=== PATIENT | female | born 1965 | race Two or more races ===

== ENCOUNTER → 2021-09-02 13:54 | Outpatient (AMBR) | payer MEDICAID, SELFPAY ==
--- NOTE | 2021-08-01 14:33 | PT.ODAYNRPT ---
PT Outpatient Daily Note Date of Service: 08/01/2021 OP Daily Note Visit Reasons: UNS FX LOWER LT RADIUS Outpatient Physical Therapy Treatment Date: 08/01/21 Subjective: pt came in states her R wrist is hurting more than her L wrist. her R wrist still has the plates inside. Objective: see flow sheet. Assessment: pt is flexing her hand while on e-stim. after estim she continues with other exercises. the green level which is the medium seems to be fine for pt she has no difficulty in flexing but slight difficulty with extending on the medium level. she maintained her endurance with resistance on scifi. heat post ther ex. Plan: continue POC per PT. Length of Time (minutes) of Treatment: 30 Minutes Office Procedures PT Procedures PT Date of Service: 08/01/21 OP Electrical Stimul Unattended: Yes Therapeutic Exercise 15 minutes: Yes
--- NOTE | 2021-08-08 16:11 | PT.ODAYNRPT ---
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 Objective: see flow sheet. Assessment: pt used the newer bike in which she felt it was harder even though there was no resistance. explained to pt it had no resistance. pt tolerated increase in the estim. while on modality she squeezes the ball to keep the contraction. as she goes through the exercises she keeps conversation indicating no pain nor difficulty with exercises. she mentioned she wants to take out the screw on the R hand to have better mobility. Plan: continue POC per PT. Length of Time (minutes) of Treatment: 30 Minutes Office Procedures PT Procedures PT Date of Service: 08/08/21 Therapeutic Exercise 30 minutes: Yes PT Procedures PT Date of Service: 08/01/21 OP Electrical Stimul Unattended: Yes Therapeutic Exercise 15 minutes: Yes
--- NOTE | 2021-08-13 14:05 | PT.ODAYNRPT ---
PT Outpatient Daily Note Date of Service: 08/13/21 OP Daily Note Visit Reasons: UNS FX LOWER LT RADIUS Outpatient Physical Therapy Treatment Date: 08/13/21 Subjective: Pt's left wrist and hand is better. Pt was able to make salsa this past weekend. Pt started light cooking with less difficulty Objective: Please see flow chart for list of ther ex performed Assessment: tolerate exercises with minimal pain; correct wrist to get more wrist extension versus wrist extension + supination during wrist extension exercise. Plan: Continue with PT Length of Time (minutes) of Treatment: 30 Minutes Office Procedures PT Procedures PT Date of Service: 08/08/21 Therapeutic Exercise 30 minutes: Yes PT Procedures PT Date of Service: 08/01/21 OP Electrical Stimul Unattended: Yes Therapeutic Exercise 15 minutes: Yes PT Procedures PT Date of Service: 08/13/21 OP Electrical Stimul Unattended: Yes Therapeutic Exercise 15 minutes: Yes
--- NOTE | 2021-08-15 15:33 | PT.ODAYNRPT ---
PT Outpatient Daily Note Date of Service: 08/15/2021 OP Daily Note Visit Reasons: UNS FX LOWER LT RADIUS Outpatient Physical Therapy Treatment Date: 08/15/21 Subjective: pt states her arm was sore from last visit. the intensity was different which caused her to have muscle fatigue. Objective: see flow sheet. Assessment: made sure her Estim was more comfortable per her tolerance. pt did demonstrate the exercise that caused more fatigue from last visit which was the wrist extension using very light DB. withheld off that exercise for today. continued with the rest of the exercise. although she was sore she completed the usual exercises. hot pack post ther ex per pt request. Plan: continue POC per PT. Length of Time (minutes) of Treatment: 30 Minutes Office Procedures PT Treatments PT Date of Service: 08/08/21 Therapeutic Exercise 30 minutes: Yes PT Treatments PT Date of Service: 08/15/21 OP Electrical Stimul Unattended: Yes Therapeutic Exercise 15 minutes: Yes PT Treatments PT Date of Service: 08/01/21 OP Electrical Stimul Unattended: Yes Therapeutic Exercise 15 minutes: Yes PT Treatments PT Date of Service: 08/13/21 OP Electrical Stimul Unattended: Yes Therapeutic Exercise 15 minutes: Yes
--- NOTE | 2021-08-19 14:15 | PT.ODAYNRPT ---
PT Outpatient Daily Note Date of Service: 08/19/2021 OP Daily Note Visit Reasons: UNS FX LOWER LT RADIUS Outpatient Physical Therapy Treatment Date: 08/19/21 Subjective: pt doing good upon visit. Objective: see flow sheet. Assessment: pt tolerated higher level on the estim with no issues. once she was on the scifit after the estim she had mentioned tingling on her forearm for a few seconds. she continued with the bike and completed the time frame. pt did well with her ther ex and has no difficulty with the motions. she does prefer heat post ther ex. Plan: continue POC per PT. Length of Time (minutes) of Treatment: 30 Minutes Office Procedures PT Treatments PT Date of Service: 08/08/21 Therapeutic Exercise 30 minutes: Yes PT Treatments PT Date of Service: 08/15/21 OP Electrical Stimul Unattended: Yes Therapeutic Exercise 15 minutes: Yes PT Treatments PT Date of Service: 08/19/21 OP Electrical Stimul Unattended: Yes Therapeutic Exercise 15 minutes: Yes PT Treatments PT Date of Service: 08/01/21 OP Electrical Stimul Unattended: Yes Therapeutic Exercise 15 minutes: Yes PT Treatments PT Date of Service: 08/13/21 OP Electrical Stimul Unattended: Yes Therapeutic Exercise 15 minutes: Yes
--- NOTE | 2021-08-23 15:08 | PT.ODAYNRPT ---
PT Outpatient Daily Note Date of Service: 08/23/2021 OP Daily Note Visit Reasons: UNS FX LOWER LT RADIUS Outpatient Physical Therapy Treatment Date: 08/23/21 Subjective: pt says her forearm felt weird today as she stated she was cutting veggies and doing chores. Objective: see flow sheet. Assessment: pt used a new tool for exercise for pronation/supination and radial dev. it did have light weight on it in which she extends the elbow to assist the motion. noted weakness with isolated wrist motions. pt completed all other exercises but she was having more discomfort. heat post ther ex. Plan: continue POC per PT. Length of Time (minutes) of Treatment: 30 Minutes Office Procedures PT Treatments PT Date of Service: 08/08/21 Therapeutic Exercise 30 minutes: Yes PT Treatments PT Date of Service: 08/15/21 OP Electrical Stimul Unattended: Yes Therapeutic Exercise 15 minutes: Yes PT Treatments PT Date of Service: 08/19/21 OP Electrical Stimul Unattended: Yes Therapeutic Exercise 15 minutes: Yes PT Treatments PT Date of Service: 08/23/21 Therapeutic Exercise 30 minutes: Yes PT Treatments PT Date of Service: 08/01/21 OP Electrical Stimul Unattended: Yes Therapeutic Exercise 15 minutes: Yes PT Treatments PT Date of Service: 08/13/21 OP Electrical Stimul Unattended: Yes Therapeutic Exercise 15 minutes: Yes
--- NOTE | 2021-08-27 15:07 | PT.ODS1RPT ---
PT OP Progress/Discharge Note Date of Service: 08/27/21 Patient Information Visit Reasons: UNS FX LOWER LT RADIUS Medical Diagnosis: S52.502A Treatment Dx #1: Left Wrist Mobility Deficits Treatment Dx #2: Left Wrist Weakness Service Continue Service or Discharge: Continue Service Certification Date Certification Dates: 08/27/21 to 11/26/21 Status Subjective: Pt's wrist is feeling much better. Pt still has pain (3/10) with certain activities. Pt started cooking, cleaning, chores, and performing light ADLs at home with less limitation. Pt still has limitation with lifting, gripping activities, wood work, and performing recreational activities. Objective: Left Wrist AROM Flexion: 40 deg Extension: 22 deg Pronation: 85 deg Supination: 68 deg Ulnar Deviation: 12 deg Radial Deviation: 22 deg Left Wrist MMTs: grossly 3+/5 Code Enforcement Inspector Strength L: 29 lbs R: 26 lbs Assessment: Pt continues to slowly improve with wrist ROM and strength allowing her to perform light ADLs, chores, cook, and self care with less limitation. Pt still has limitation with recreational activities, gripping, and performing lifting due to weakness and wrist AROM limitaiton. Pt has not met set goals and will continue to benefit from physical therapy, thank you for your referrals. Plan: Continue with PT/POC This patient will be transfer to [facility], DPT as of 09/02/21 Office Procedures PT Treatments PT Date of Service: 08/08/21 Therapeutic Exercise 30 minutes: Yes PT Treatments PT Date of Service: 08/15/21 OP Electrical Stimul Unattended: Yes Therapeutic Exercise 15 minutes: Yes PT Treatments PT Date of Service: 08/19/21 OP Electrical Stimul Unattended: Yes Therapeutic Exercise 15 minutes: Yes PT Treatments PT Date of Service: 08/23/21 Therapeutic Exercise 30 minutes: Yes PT Treatments PT Date of Service: 08/01/21 OP Electrical Stimul Unattended: Yes Therapeutic Exercise 15 minutes: Yes PT Treatments PT Date of Service: 08/13/21 OP Electrical Stimul Unattended: Yes Therapeutic Exercise 15 minutes: Yes PT Treatments PT Date of Service: 08/27/21 Therapeutic Exercise 30 minutes: Yes
--- NOTE | 2021-08-29 16:43 | PT.ODAYNRPT ---
PT Outpatient Daily Note Date of Service: 08/29/2021 OP Daily Note Visit Reasons: UNS FX LOWER LT RADIUS Outpatient Physical Therapy Treatment Date: 08/29/21 Subjective: pt states she still not able to bend the wrist. she continues to have pain. Objective: see flow sheet. Assessment: pt started with sci fit followed by PROM. noted pt does have a limited mobility of the wrist. she does have discomfort during PROM. after a few mins continued onto the exercises. she completed all ther ex and refused heat post ther ex. Plan: continue POC per PT. Length of Time (minutes) of Treatment: 30 Minutes Office Procedures PT Treatments PT Date of Service: 08/08/21 Therapeutic Exercise 30 minutes: Yes PT Treatments PT Date of Service: 08/15/21 OP Electrical Stimul Unattended: Yes Therapeutic Exercise 15 minutes: Yes PT Treatments PT Date of Service: 08/19/21 OP Electrical Stimul Unattended: Yes Therapeutic Exercise 15 minutes: Yes PT Treatments PT Date of Service: 08/23/21 Therapeutic Exercise 30 minutes: Yes PT Treatments PT Date of Service: 08/29/21 Therapeutic Exercise 15 minutes: Yes Manual Turbine Room Attendant 15 minutes: Yes PT Treatments PT Date of Service: 08/01/21 OP Electrical Stimul Unattended: Yes Therapeutic Exercise 15 minutes: Yes PT Treatments PT Date of Service: 08/13/21 OP Electrical Stimul Unattended: Yes Therapeutic Exercise 15 minutes: Yes PT Treatments PT Date of Service: 08/27/21 Therapeutic Exercise 30 minutes: Yes
--- NOTE | 2021-09-02 15:31 | PT.ODAYNRPT ---
PT Outpatient Daily Note Date of Service: 09/02/2021 OP Daily Note Visit Reasons: UNS FX LOWER LT RADIUS Outpatient Physical Therapy Treatment Date: 09/02/21 Subjective: pt states her wrist still hurts as she uses her hands daily. Objective: see flow sheet. Assessment: PROM and noted the same ROM which is still limited. not much movement during PROM. she does demonstrate good strength during manual resistance. she does not complain during PROM but it is uncomfortable at times. she is able to flex the digits and her hand in the different exercises with full ROM. Plan: continue POC per PT. Length of Time (minutes) of Treatment: 30 Minutes Office Procedures PT Treatments PT Date of Service: 08/08/21 Therapeutic Exercise 30 minutes: Yes PT Treatments PT Date of Service: 08/15/21 OP Electrical Stimul Unattended: Yes Therapeutic Exercise 15 minutes: Yes PT Treatments PT Date of Service: 08/19/21 OP Electrical Stimul Unattended: Yes Therapeutic Exercise 15 minutes: Yes PT Treatments PT Date of Service: 08/23/21 Therapeutic Exercise 30 minutes: Yes PT Treatments PT Date of Service: 08/29/21 Therapeutic Exercise 15 minutes: Yes Manual Internal Combustion Engineer 15 minutes: Yes PT Treatments PT Date of Service: 08/01/21 OP Electrical Stimul Unattended: Yes Therapeutic Exercise 15 minutes: Yes PT Treatments PT Date of Service: 08/13/21 OP Electrical Stimul Unattended: Yes Therapeutic Exercise 15 minutes: Yes PT Treatments PT Date of Service: 08/27/21 Therapeutic Exercise 30 minutes: Yes PT Treatments PT Date of Service: 09/02/21 Therapeutic Exercise 30 minutes: Yes
== END ==
PROVIDERS: Visit Provider Surgery
DX: S52.502D Unspecified fracture of the lower end of left radius, subsequent encounter for closed fracture with routine healing (principal); M25.532 Pain in left wrist; R53.1 Weakness; X58.XXXD Exposure to other specified factors, subsequent encounter
CPT/HCPCS: 97014; 97110; 97140; G0283

== ENCOUNTER 2024-10-20 11:30 | Outpatient (RCR) | payer MEDICAID, SELFPAY ==
--- NOTE | 2024-10-03 14:08 | PT.ODAYNRPT ---
PT Outpatient Daily Note OP Daily Note Outpatient Physical Therapy Treatment Date: 10/03/24 Visit Reasons: PL[employer]AR [facility]AS[employer] Subjective: Pt's feet a little better. Pt able to walk a little longer than beforehand. Objective: Please see flow chart for list of ther ex performed Assessment: tolerate exercises with minimal pain. less pain reported with STM Plan: Continue with PT Length of Time (minutes) of Treatment: 30 Minutes Procedure Charges Therapeutic Exercise 30 minutes: Yes
--- NOTE | 2024-10-06 13:41 | PT.ODAYNRPT ---
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 Pt shared she was pruning trees at her moms backyard when she fell off the ladder. Pt mentioned she landed on her R side, R forearm is swollen and R hip is sore. Pt had x-rays they came out negative. Pt says she has been stretching and moving her arm and hip to prevent it from stiffening, pt reports just feeling sore in hip and where arm is bruised. Objective: Please see flow sheet for ther ex list. Assessment: Pt performed previous interventions with good tolerance, no complaints with interventions assigned. Plan: Continue with POC. Length of Time (minutes) of Treatment: 30 Minutes Procedure Charges Therapeutic Exercise 30 minutes: Yes
--- NOTE | 2024-10-12 13:30 | PT.ODAYNRPT ---
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 All of her imaging has been negative. Pt is being refer to Dr Thomas for her knee which is not related to the fall. Pt still feels sore and wants to go easy Objective: Please see flow chart for list of ther ex performed Assessment: Pt decline increase in resistance or exercise progression today due to feeling sore from fall. Pt tolerate all exercises performed today Plan: Continue with PT Length of Time (minutes) of Treatment: 30 Minutes Procedure Charges Therapeutic Exercise 30 minutes: Yes
--- NOTE | 2024-10-14 13:34 | PT.ODAYNRPT ---
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 Objective: Please see flow sheet for ther ex list. Assessment: no complaints during interventions indicating progress. Plan: Continue with POC. Length of Time (minutes) of Treatment: 30 Minutes Procedure Charges Therapeutic Exercise 30 minutes: Yes
--- NOTE | 2024-10-18 13:56 | PT.ODAYNRPT ---
PT Outpatient Daily Note OP Daily Note Outpatient Physical Therapy Treatment Date: 10/18/24 Visit Reasons: PL[employer]AR [employer]AS[employer] Subjective: Pt's feet is better and does not have any concerns. Pt was able to climb up ladder to pick fruits today Objective: Please see flow chart for list of ther ex performed Assessment: progressing with ankle mobility and strength allowing her to perform light yardwork with minimal limitation Plan: Continue with PT Length of Time (minutes) of Treatment: 30 Minutes Procedure Charges Therapeutic Exercise 30 minutes: Yes
--- NOTE | 2024-10-20 12:02 | PT.ODAYNRPT ---
PT Outpatient Daily Note OP Daily Note Outpatient Physical Therapy Treatment Date: 10/20/24 Visit Reasons: PL[employer]AR [employer]ASCIAL Subjective: Pt's feels was feeling better until she jammed on toes while lifting a box. Objective: Please see flow chart for list of ther ex performed Assessment: tolerate exercises performed with minimal pain reported. Pt decline resistance with hip exercises Plan: Continue with PT Length of Time (minutes) of Treatment: 30 Minutes Procedure Charges Therapeutic Exercise 30 minutes: Yes
--- NOTE | 2024-11-21 10:57 | PTNOTE_ITS ---
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 Pt last treated on 10/20/24 and has not return to therapy. At this time Pt will be d/c from care due to non- compliance per attendance policy. Pt did not meet set goals in therapy; thank you for your referrals.
== END 2024-10-29 23:59 | disposition home or self-care (01) ==
LOC: CPTX 11:30
PROVIDERS: PCP Registered Nurse Community Health; Referring Provider Registered Nurse Community Health; Visit Provider Registered Nurse Community Health
DX: M79.672 Pain in left foot (principal); M79.671 Pain in right foot; G89.29 Other chronic pain; R26.2 Difficulty in walking, not elsewhere classified; R26.89 Other abnormalities of gait and mobility; R53.1 Weakness; M72.2 Plantar fascial fibromatosis
CPT/HCPCS: 97110

== ENCOUNTER → 2024-12-08 | Outpatient (CLI) | payer MEDICAID, SELFPAY ==
--- NOTE | 2024-12-08 14:13 | XR_ITS ---
Examination: Left elbow 3 views Technique: Elbow AP, oblique, lateral 3 views Exam date and time: December 08, 2024 1425 hours INDICATIONS: Left elbow pain beginning 3 weeks ago. FINDINGS: Mild elbow osteoarthritis No fracture or dislocation No elbow effusion IMPRESSION: Mild elbow osteoarthritis.
== END | disposition home or self-care (01) ==
PROVIDERS: PCP Registered Nurse Community Health
DX: M19.022 Primary osteoarthritis, left elbow (principal)
CPT/HCPCS: 73080

== ENCOUNTER 2024-12-20 13:06 | Outpatient (AMB) | payer MEDICAID, SELFPAY ==
[2024-12-20 13:17] VITALS: BP 107/70; PULSE 70; RESP 18; TEMP 36.6; O2SAT 98; BMI 40.1
--- NOTE | 2024-12-20 13:17 | ORTHONT_ITS ---
Vital signs 12/20/24 13:17 Height 1.57 m Height Method Stated Weight 99.592 kg Weight Measurement Method Standing Scale BMI 40.1 BP 107/70 Blood Pressure Source Automatic Cuff Blood Pressure Location Left Upper Arm Position Sitting Respiration 18 Pulse 70 Pulse Source Monitor Temp 97.8 F Temp Source Temporal Artery Scan Pulse Oximetry (%) 98 Oxygen Delivery Method Room Air Med/Allergies Allergies & Medications Allergies No Known Allergies Allergy (Verified 12/20/24 13:19) Medication Reconciliation acetaminophen 325 mg tablet 650 mg PO QID PRN Pain 12/13/20 [History Confirmed 12/20/24] meloxicam 7.5 mg tablet 7.5 mg PO QDAY #45 tabs 12/20/24 [Rx] Exam Exam Patient is in no acute distress and is cooperative with the examination today. Breathing is nonlabored. Patient has a normal mood and affect. Bilateral extremities were evaluated and demonstrates sensation intact to light touch. Palpable pedal pulses are present. No significant edema is present. Bilateral hips were examined. The patient has no pain with log roll of the hips. Internal rotation to 30 degrees and external rotation to 30 degrees is painless. Negative FADIR. Right knee was examined today. The right knee is in reasonable alignment. Range of motion from 0-120 degrees. Knee is stable to varus and valgus as well as AP translation with <5mm. Patient has a negative McMurrays. There is no pain with patellofemoral compression and no crepitus noted. The knee is nontender to palpation. Left knee was examined today. The left knee is in valgus alignment. Range of motion from 0-115 degrees. Knee is stable to varus and valgus as well as AP translation with <5mm. Patient has a negative McMurrays. There is no pain with patellofemoral compression and no crepitus noted. The knee is tender to palpation laterally X-rays are nonweightbearing. This demonstrates mild to moderate arthritis laterally. Weightbearing x-rays are needed Assessment and Plan Problem List (1) Arthritis of left knee: Status: Acute Plan: Patient is a 59-year-old female with left knee pain and left knee arthritis. We discussed nonoperative and operative options. We would need to get weightbearing x-rays to better assess the severity. We will do an injection at the next visit as she has never tried one. I have also sent her a prescription for meloxicam Office Procedures GNS Level of Care Nursing/Assessment Patient Status: Initial/New Patient Nursing Assessment/Reassesment: Medication Reconciliation, Update PMH in EMR and Vital Signs Coordination of Care: Complex Care and Chronic Disease 1-5, Education Complex Pt/Fam, Consent,records obtained, informed consent, 1 Ins Authorization, Lab and Imaging orders, Results/Orders obtained and Staff clarify orders New Patient Charge New Patient Point Assignment: 1124 New Patient Point Charge: FUNCTIONAL SUPPORT ANALYST Level 4 ([id number]) MA Intake Visit Data Collection New Patient or Established: Established Patient (seen at [facility] within 3 years) Reason for Visit:: LEFT KNEE PAIN Seen by Clinical Staff ONLY (RN/MA): No Food And Drug Research Scientist Required: No PCP or OBGYN visit in last 3 months: Yes Hx Now: No Do You Feel Safe at Home: Yes Authorities Contacted: N/A Questionairres Past Medical History Past Medical History Have you ever been diagnosed with any of the following: Neurological Problems Seizures: No Cardiology Problems Congestive Heart Failure: No Edema: Yes (LEFT LEG) Hypotension: Yes (ASYMPTOMATIC) Respiratory Problems Chronic Obstructive Pulmonary Disease (COPD): No Stomache/Intestinal Problems Hepatitis: No Genital/Urinary Problems Renal Disease: No Reproductive Problems Previous Pregnancies: Yes (X4) Musculoskeletal Problems Arthritis: Yes Fractures: Yes (BILATERAL ARMS. BILATERAL SURGERIES 2019) Endocrine Problems Diabetes Mellitus Type 1: No Diabetes Mellitus Type 2: No Blood Problems Anemia: Yes (IN THE PAST) Clotting Problems: No Other Problems Hospitalization: No Falls: No (FELL IN JUNE 2020) Blood Transfusions: No Blood Transfusion Reaction: No Anesthesia Reactions: No Organ Transplant: No MRSA: No VRSA: No Vancomycin-Resistant Enterococci: No Chicken Pox: Yes Cancer: No Surgical History Hysterectomy: Yes (1997) Subjective Visit Visit for: follow up visit and knee Immunization / Flu Flu Vaccine in the Last 12 Months: Yes Flu Vaccine Exclusion Criteria: Already Received History of Present Illness Chief complaint: left knee pain Date of injury / onset of symptoms: 11/2019 Hannah is a pleasant 59-year-old female with left knee pain. She has had a left knee arthritis for quite a while. She had a prior arthroscopic meniscectomy was told she may need a knee replacement in the future. She has not had any arthritis medications or injections. She has tried formal physical therapy Personal History Occupation: [employer] Pain Pain level (0-10): 6 Pain duration: COMES AND GOES Pain location: inside (medial), outside (lateral), anterior and posterior Pain quality: sharp and dull Pain timing: night, increases with activity and stairs Associated signs & symptoms: none Ambulatory data Ambulatory device: none Treatments Improvement with previous injections: No Number of Physical Therapy sessions: 12 Improvement with PT: No Improvement with NSAIDS: no Review of Systems Review of Systems: All systems negative unless otherwise noted in HPI.
== END 2024-12-20 13:50 | disposition home or self-care (01) ==
LOC: HODSRG 13:06
PROVIDERS: PCP Registered Nurse Community Health; Referring Provider Registered Nurse Community Health; Supervising Provider Orthopaedic Surgery Adult Reconstructive Orthopaedic Surgery; Visit Provider Orthopaedic Surgery Adult Reconstructive Orthopaedic Surgery
DX: M17.12 Unilateral primary osteoarthritis, left knee (principal); M25.562 Pain in left knee
CPT/HCPCS: 99204; G0463

== ENCOUNTER → 2024-12-20 | Outpatient (CLI) | payer MEDICAID, SELFPAY ==
--- NOTE | 2024-12-20 14:12 | XR_ITS ---
Examination: Left knee 4 views TECHNIQUE: AP oblique lateral axial left knee 4 views, standing Exam date and time: December 20, 2024 1441 hours INDICATIONS: Left knee pain several years. FINDINGS: Moderate osteopenia Mild to moderate tricompartment osteoarthritis No fracture or dislocation No cortical bone destruction IMPRESSION: Mild to moderate tricompartment osteoarthritis
== END | disposition home or self-care (01) ==
PROVIDERS: PCP Registered Nurse Community Health; Referring Provider Orthopaedic Surgery Adult Reconstructive Orthopaedic Surgery; Visit Provider Orthopaedic Surgery Adult Reconstructive Orthopaedic Surgery
DX: M17.12 Unilateral primary osteoarthritis, left knee (principal)
CPT/HCPCS: 73564

== ENCOUNTER 2025-01-12 13:00 | Outpatient (AMB) | payer MEDICAID, SELFPAY ==
--- NOTE | 2025-01-12 13:23 | ORTHONT_ITS ---
Vital signs 01/12/25 13:24 Height 1.57 m Height Method Stated Weight 97.976 kg Weight Measurement Method Standing Scale BMI 39.7 BP 110/75 Blood Pressure Source Automatic Cuff Blood Pressure Location Left Upper Arm Position Sitting Respiration 18 Pulse 70 Pulse Source Monitor Temp 98.0 F Temp Source Temporal Artery Scan Pulse Oximetry (%) 98 Oxygen Delivery Method Room Air Med/Allergies Allergies & Medications Allergies No Known Allergies Allergy (Verified 01/12/25 13:25) Medication Reconciliation acetaminophen 325 mg tablet 650 mg PO QID PRN Pain 12/13/20 [History Confirmed 01/12/25] meloxicam 7.5 mg tablet 7.5 mg PO QDAY #45 tabs 12/20/24 [Rx Confirmed 01/12/25] Exam Exam Patient is in no acute distress and is cooperative with the examination today. Breathing is nonlabored. Patient has a normal mood and affect. Bilateral extremities were evaluated and demonstrates sensation intact to light touch. Palpable pedal pulses are present. No significant edema is present. Bilateral hips were examined. The patient has no pain with log roll of the hips. Internal rotation to 30 degrees and external rotation to 30 degrees is painless. Negative FADIR. Right knee was examined today. The right knee is in reasonable alignment. Range of motion from 0-120 degrees. Knee is stable to varus and valgus as well as AP translation with <5mm. Patient has a negative McMurrays. There is no pain with patellofemoral compression and no crepitus noted. The knee is nontender to palpation. Left knee was examined today. The left knee is in valgus alignment. Range of motion from 0-115 degrees. Knee is stable to varus and valgus as well as AP translation with <5mm. Patient has a negative McMurrays. There is no pain with patellofemoral compression and no crepitus noted. The knee is tender to palpation laterally X-rays are nonweightbearing. This demonstrates mild to moderate arthritis laterally. Weightbearing x-rays are needed Assessment and Plan Problem List (1) Arthritis of left knee: Status: Acute Plan: Patient is a 59-year-old female with left knee pain and left knee arthritis. We discussed nonoperative and operative options. We would need to get weigh tbearing x-rays to better assess the severity. We will do an injection at the next visit as she has never tried one. Recommend knee cortisone injection as patient would like to proceed with conser vative treatment at this time. The risks and benefits of the procedure were reviewed with the patient and patient gave verbal consent to continue with the procedure. Procedure: performed by Dr. Thomas Using sterile technique the left knee was thoroughly prepped with alcohol, and approximately 1 cc of Kenalog 40 mg/mL and 4 cc of 1% lidocaine was injected without resistance into the medial tibial femoral joint space. The patient tolerated the procedure. Office Procedures GNS Level of Care Nursing/Assessment Patient Status: Established Patient Nursing Assessment/Reassesment: Medication Reconciliation, Update PMH in EMR and Vital Signs Coordination of Care: Complex Care and Chronic Disease 1-5, Education Complex Pt/Fam, Consent,records obtained, informed consent, Results/Orders obtained and Staff clarify orders Established Patient Charge Established Patient Point Assignment: 95 Established Patient Point Charge: EP Level 3 (80-115) Surgical Proc/IM SQ injection Major Surgical Procedure: Yes (LEFT KNEE INJECTION) Medication Given Medication Given Medication Given: Yes Documented Dose Given: 4 Route: Infiitration Medication Given Medication Given Medication Given: Yes Documented Dose Given: 1 Route: Infiitration Office Meds lidocaine HCl 10 mg/mL (1 %) injection solution Performing Provider: Maik Thomas MD Performing Location: [facility] Administered by: Maik Thomas MD on 01/12/25 15:54 Dose Route Admin Location Dispensed Lot Number Expiration Date [facility] B[employer] 200 mg Infiltration KNEE 20 mL [id number] 03/29/28 20217-919-29 [facility] triamcinolone acetonide 40 mg/mL suspension for injection Performing Provider: Maik Thomas MD Performing Location: [facility] Administered by: Maik Thomas MD on 01/12/25 15:54 Dose Route Admin Location Dispensed Lot Number Expiration Date [facility] [employer] 40 mg IM KNEE 1 mL [id number] 04/28/26 0361-5780-71 [facility]ARL[facility] MA Intake Visit Data Collection New Patient or Established: Established Patient (seen at [facility] within 3 years) Reason for Visit:: XRAY RESULTS/RIGHT KNEE Seen by Clinical Staff ONLY (RN/MA): No Wax Engraver Required: No PCP or OBGYN visit in last 3 months: Yes Hx Now: No Do You Feel Safe at Home: Yes Authorities Contacted: N/A Questionairres Past Medical History Past Medical History Have you ever been diagnosed with any of the following: Neurological Problems Seizures: No Cardiology Problems Congestive Heart Failure: No Edema: Yes (LEFT LEG) Hypotension: Yes (ASYMPTOMATIC) Respiratory Problems Chronic Obstructive Pulmonary Disease (COPD): No Stomache/Intestinal Problems Hepatitis: No Genital/Urinary Problems Renal Disease: No Reproductive Problems Previous Pregnancies: Yes (X4) Musculoskeletal Problems Arthritis: Yes Fractures: Yes (BILATERAL ARMS. BILATERAL SURGERIES 2019) Endocrine Problems Diabetes Mellitus Type 1: No Diabetes Mellitus Type 2: No Blood Problems Anemia: Yes (IN THE PAST) Clotting Problems: No Other Problems Hospitalization: No Falls: No (FELL IN JUNE 2020) Blood Transfusions: No Blood Transfusion Reaction: No Anesthesia Reactions: No Organ Transplant: No MRSA: No VRSA: No Vancomycin-Resistant Enterococci: No Chicken Pox: Yes Cancer: No Surgical History Hysterectomy: Yes (1997) Subjective Visit Visit for: follow up visit and knee Immunization / Flu Flu Vaccine in the Last 12 Months: No Flu Vaccine Exclusion Criteria: No Exclusion Criteria History of Present Illness Chief complaint: left knee pain Date of injury / onset of symptoms: 11/2019 Hannah is a pleasant 59-year-old female with left knee pain. She has had a left knee arthritis for quite a while. She had a prior arthroscopic meniscectomy and was told she may need a knee replacement in the future. She has not had any arthritis medications or injections. 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
[2025-01-12 13:24] VITALS: BP 110/75; PULSE 70; RESP 18; TEMP 36.7; O2SAT 98; BMI 39.7
== END 2025-01-12 13:40 | disposition home or self-care (01) ==
LOC: HODSRG 13:00
PROVIDERS: PCP Registered Nurse Community Health; Referring Provider Registered Nurse Community Health; Supervising Provider Orthopaedic Surgery Adult Reconstructive Orthopaedic Surgery; Visit Provider Orthopaedic Surgery Adult Reconstructive Orthopaedic Surgery
DX: M17.12 Unilateral primary osteoarthritis, left knee (principal); M25.562 Pain in left knee
CPT/HCPCS: 20610; 99213; J3301; J3490; G0463

== ENCOUNTER 2025-04-11 13:07 | Outpatient (AMB) | payer MEDICAID, SELFPAY ==
--- NOTE | 2025-04-11 13:23 | ORTHONT_ITS ---
Vital signs 04/11/25 13:24 Height 1.57 m Height Method Stated Weight 94.376 kg Weight Measurement Method Standing Scale BMI 38.2 BP 99/64 Blood Pressure Source Automatic Cuff Blood Pressure Location Right Upper Arm Position Sitting Respiration 18 Pulse 65 Pulse Source Monitor Temp 97.3 F Temp Source Temporal Artery Scan Pulse Oximetry (%) 95 Oxygen Delivery Method Room Air Med/Allergies Allergies & Medications Allergies No Known Allergies Allergy (Verified 04/11/25 13:24) Medication Reconciliation acetaminophen 325 mg tablet 650 mg PO QID PRN Pain 12/13/20 [History Confirmed 04/11/25] meloxicam 7.5 mg tablet 7.5 mg PO QDAY #45 tabs 12/20/24 [Rx Confirmed 04/11/25] Exam Exam Patient is in no acute distress and is cooperative with the examination today. Breathing is nonlabored. Patient has a normal mood and affect. Bilateral extremities were evaluated and demonstrates sensation intact to light touch. Palpable pedal pulses are present. No significant edema is present. Bilateral hips were examined. The patient has no pain with log roll of the hips. Internal rotation to 30 degrees and external rotation to 30 degrees is painless. Negative FADIR. Right knee was examined today. The right knee is in reasonable alignment. Range of motion from 0-120 degrees. Knee is stable to varus and valgus as well as AP translation with <5mm. Patient has a negative McMurrays. There is no pain with patellofemoral compression and no crepitus noted. The knee is nontender to palpation. Left knee was examined today. The left knee is in valgus alignment. Range of motion from 0-115 degrees. Knee is stable to varus and valgus as well as AP translation with <5mm. Patient has a negative McMurrays. There is no pain with patellofemoral compression and no crepitus noted. The knee is tender to palpation laterally Weightbearing x-rays demonstrate moderate arthritis Assessment and Plan Problem List (1) Arthritis of left knee: Status: Acute Plan: Patient is a 59-year-old female with left knee pain and left knee arthritis. Weightbearing x-rays demonstrate moderate arthritis Recommend knee cortisone injection as patient would like to proceed with conservative treatment at this time. The risks and benefits of the procedure were reviewed with the patient and patient gave verbal consent to continue with the procedure. Procedure: performed by Dr. Thomas Using sterile technique the left knee was thoroughly prepped with alcohol, and approximately 1 cc of Kenalog 40 mg/mL and 4 cc of 1% lidocaine was injected without resistance into the medial tibial femoral joint space. The patient tolerated the procedure. Office Procedures GNS Level of Care Nursing/Assessment Patient Status: Established Patient Nursing Assessment/Reassesment: Medication Reconciliation, Update PMH in EMR and Vital Signs Coordination of Care: Complex Care and Chronic Disease 1-5, Education Complex Pt/Fam, Consent,records obtained, informed consent, Results/Orders obtained and Staff clarify orders Established Patient Charge Established Patient Point Assignment: 95 Established Patient Point Charge: EP Level 3 (80-115) Surgical Proc/IM SQ injection Major Surgical Procedure: Yes (KNEE INJECTION) Medication Given Medication Given Medication Given: Yes Documented Dose Given: 4 Route: Infiitration Medication Given Medication Given Medication Given: Yes Documented Dose Given: 1 Route: Infiitration Office Meds Xylocaine 10 mg/mL (1 %) injection solution Performing Provider: Maik Thomas MD Performing Location: [facility] Administered by: Maik Thomas MD on 04/11/25 13:52 Dose Route Admin Location Dispensed Lot Number Expiration Date [facility] Marketing Operations Coordinator 20 mL Infiltration 20 mL [id number] 07/29/28 56190-132-07 [facility] triamcinolone acetonide 40 mg/mL suspension for injection Performing Provider: Maik Thomas MD Performing Location: [facility] Administered by: Maik Thomas MD on 04/11/25 13:52 Dose Route Admin Location Dispensed Lot Number Expiration Date [facility] Marketing Operations Coordinator 40 mg intra-articular KNEE 1 mL [id number] 09/28/26 0866-1430-41 [facility] [place] Intake Visit Data Collection New Patient or Established: Established Patient (seen at [facility] within 3 years) Reason for Visit:: F/U 3 MONTHS Seen by Clinical Staff ONLY (RN/MA): No Verbal consent obtained for Telemed visit?: No Land Degradation Analyst Required: No PCP or OBGYN visit in last 3 months: Yes Hx Now: No Do You Feel Safe at Home: Yes Authorities Contacted: N/A Questionairres Past Medical History Past Medical History Have you ever been diagnosed with any of the following: Neurological Problems Seizures: No Cardiology Problems Congestive Heart Failure: No Edema: Yes (LEFT LEG) Hypotension: Yes (ASYMPTOMATIC) Respiratory Problems Chronic Obstructive Pulmonary Disease (COPD): No Stomache/Intestinal Problems Hepatitis: No Genital/Urinary Problems Renal Disease: No Reproductive Problems Previous Pregnancies: Yes (X4) Musculoskeletal Problems Arthritis: Yes Fractures: Yes (BILATERAL ARMS. BILATERAL SURGERIES 2019) Endocrine Problems Diabetes Mellitus Type 1: No Diabetes Mellitus Type 2: No Blood Problems Anemia: Yes (IN THE PAST) Clotting Problems: No Other Problems Hospitalization: No Falls: No (FELL IN JUNE 2020) Blood Transfusions: No Blood Transfusion Reaction: No Anesthesia Reactions: No Organ Transplant: No MRSA: No VRSA: No Vancomycin-Resistant Enterococci: No Chicken Pox: Yes Cancer: No Surgical History Hysterectomy: Yes (1997) Subjective Visit Visit for: follow up visit and knee Immunization / Flu Flu Vaccine in the Last 12 Months: No Flu Vaccine Exclusion Criteria: No Exclusion Criteria History of Present Illness Chief complaint: F/U 3 MONTHS KNEE Date of injury / onset of symptoms: 11/2019 Hannah is a pleasant 59-year-old female with left knee pain. She has had a left knee arthritis for quite a while. She had a prior arthroscopic meniscectomy and was told she may need a knee replacement in the future. She has not had any arthritis medications or injections. It turns out she cannot take anti- inflammatories due to her gastric bypass Personal History Occupation: [employer] HOME Red flag PMH: BMI BMI Counceling provided: Yes Pain Pain level (0-10): 10 Pain duration: COMES AND GOES Pain location: inside (medial), outside (lateral), anterior and posterior Pain quality: sharp, dull and aching Pain timing: night, increases with activity and stairs Associated signs & symptoms: none Ambulatory data Ambulatory device: none Treatments Improvement with previous injections: No Number of Physical Therapy sessions: 12 Improvement with PT: No Improvement with NSAIDS: no Review of Systems Review of Systems: All systems negative unless otherwise noted in HPI.
[2025-04-11 13:24] VITALS: BP 99/64; PULSE 65; RESP 18; TEMP 36.3; O2SAT 95; BMI 38.2
== END 2025-04-11 13:58 | disposition home or self-care (01) ==
PROVIDERS: PCP Registered Nurse Community Health; Referring Provider Registered Nurse Community Health; Supervising Provider Orthopaedic Surgery Adult Reconstructive Orthopaedic Surgery; Visit Provider Orthopaedic Surgery Adult Reconstructive Orthopaedic Surgery
DX: M17.12 Unilateral primary osteoarthritis, left knee (principal)
CPT/HCPCS: 20610; 99213; J3301; J3490; G0463

== ENCOUNTER → 2025-10-02 | Outpatient (CLI) | payer MEDICAID, SELFPAY ==
--- NOTE | 2025-10-02 08:45 | XR_ITS ---
Examination: Screening digital mammography, bilateral Computer aided detection 3-D breast Tomosynthesis, bilateral Date and time of exam: 10/02/2025, 8:52 a.m. Comparisons: 07/22/2024 Indications: Screening Technique: Nonmagnified MLO, CC views of the breasts to been obtained, reconstructed from 3-D Tomosynthesis images. R2 computer aided detection program utilized for evaluation of suspicious masses and/or abnormal calcifications. 3-D Tomosynthesis images obtained. Technologist: Findings: There are scattered areas of fibroglandular density. No evidence of abnormal masses or suspicious calcifications. Impression: BI-RADS category 1: Negative findings (within normal) Recommend 1 year follow-up mammogram
== END | disposition home or self-care (01) ==
PROVIDERS: PCP Registered Nurse Community Health; Referring Provider Registered Nurse Community Health; Visit Provider Registered Nurse Community Health
DX: Z12.31 Encounter for screening mammogram for malignant neoplasm of breast (principal); R92.313 Mammographic fatty tissue density, bilateral breasts
CPT/HCPCS: 77063; 77067